=== PATIENT | female | born 1985 | race Caucasian/White ===

== ENCOUNTER 2022-02-13 10:14 | Emergency (ER) | payer SELFPAY ==
[2022-02-13] MEDS ORDERED: Tetracaine 0.5% PF 4 ML BOT ONE (10:33)
[2022-02-13] MEDS ORDERED: Fluorescein Opthalmic Strip ONE (10:33)
== END 2022-02-13 10:48 | disposition home or self-care (01) ==
LOC: BURERS 10:14
DX: S05.01XA Injury of conjunctiva and corneal abrasion without foreign body, right eye, initial encounter (principal); J45.909 Unspecified asthma, uncomplicated; F17.290 Nicotine dependence, other tobacco product, uncomplicated; X58.XXXA Exposure to other specified factors, initial encounter
CPT/HCPCS: 99283